=== PATIENT | female | born 1955 | race Caucasian/White ===

== ENCOUNTER 2019-03-04 17:16 | Inpatient (IN) | payer OTHER ==
[~2019-03-04] VITALS: Ht 157.5 cm; Wt 54.9 kg
[2019-03-04 17:16] VITALS: BP 121/54
--- NOTE | 2019-03-04 17:16 | NUR ---
Patient BIBA ALS, transferred to bed 10. RN evaluating patient at bedside.
[2019-03-04] MEDS ORDERED: NACL 0.9% 500 ML IV SCH (17:18)
--- NOTE | 2019-03-04 17:28 | NUR ---
diet tech at bedside.
[2019-03-04] MEDS ORDERED: CITA10TA11 PO (17:36)
[2019-03-04] MEDS ORDERED: DONE5TAB6 PO (17:36)
[2019-03-04] MEDS ORDERED: ASPI-1718 PO (17:36)
[2019-03-04] MEDS ORDERED: ATOR10TA PO (17:36)
[2019-03-04] MEDS ORDERED: AMLO2.5T PO (17:36)
--- NOTE | 2019-03-04 17:44 | NUR ---
NAIL ARABIC REMOVED FROM LEFT 1ST DIGIT AND SPO2 PLACED.
[2019-03-04 17:49] LABS: HEMATOCRIT 42.1 % (36-48); HEMOGLOBIN 13.7 g/dL (12.0-16.0); MEAN CORPUSCULAR HEMOGLOBIN 31 pg (27-31); MEAN CORPUSCULAR HGB CONC 33 g/dL (33-37); MEAN CORPUSCULAR VOLUME 95.3 fL (80-94); PLATELET COUNT (AUTO) 150 K/uL (140-450); RED BLOOD CELL COUNT(AUTO) 4.42 MIL/uL (4.20-5.40); RED CELL DISTRIBUTION WIDTH 13.2 % (11.6-13.7); WHITE BLOOD COUNT (AUTO) 15.6 K/uL (4.8-10.8)
[2019-03-04] MEDS ORDERED: OSELTAMIVIR PHOSPHATE 75 MG CAP PO ONE (18:00)
[2019-03-04] MEDS ORDERED: ALBUTEROL 0.083% 2.5 MG/3 ML NEBU INH ONE (18:00)
[2019-03-04] MEDS ORDERED: LEVOFLOXACIN 500 MG/D5W PREMIX 100 ML IV ONE (18:00)
[2019-03-04] MEDS ORDERED: NACL 0.9% 500 ML IV ONE (18:00)
[2019-03-04] MEDS ORDERED: methylPREDNISolone SS 125 MG/2 ML VIAL IVP ONE (18:00)
[2019-03-04] MEDS ORDERED: IPRATROPIUM 0.02% 0.5 MG/2.5 ML NEBU INH ONE (18:00)
[2019-03-04 18:01] LABS: CARBON DIOXIDE 31.2 mmol/L (21-32); CREATININE 1.4 mg/dL (0.6-1.3); POTASSIUM 4.2 mmol/L (3.5-5.1)
--- NOTE | 2019-03-04 18:01 | NUR ---
PT REMAINS MILDLY TREMULOUS WITH A WEAK WET COUGH---AUDIBLE RALE/RHONCHI 1-2 WORDED SPEECH WITH MODERATE ACCESSORY MUSCLE USE NOTED, SUPRACLAVICULAR, INTERCOSTAL, AND ABDOMINAL NOTED. MD AWARE--OKAY WITH 4-5 L NC OXYGEN AT THIS TIME--PT REMAINS ORIENTED TO NAME TIME PLACE AND EVEN. NO STEROIDS AT THIS TIME PER MD. RT CALLED FOR HHN 2NS IV PLACED. CONTINUOUS MONITORING AT THIS TIME
[2019-03-04 18:07] LABS: ALBUMIN 3.9 g/dL (3.4-5.0); TOTAL BILIRUBIN 0.9 mg/dL (0.0-1.0)
[2019-03-04 18:15] VITALS: BP 88/43
[2019-03-04 18:24] LABS: LYMPHOCYTES % (MANUAL) 5 % (20-46)
--- NOTE | 2019-03-04 18:25 | NUR ---
Pt's oxygen saturation 88% on 2L nasal canula. Dr. Alvarez made aware. Oxygen increased to 6L per minute per Dr. Alvarez. Pt oxygen saturaion increased to 94%.
--- NOTE | 2019-03-04 18:59 | NUR ---
STRAIGHT CATH AND RECTAL TEMP OBTAINED WITH HELP FROM PT AND MINNA PUENTES AND ROSETTA EMT
[2019-03-04 19:15] LABS: BILIRUBIN,URINE NEGATIVE (NEGATIVE); BLOOD, URINE NEGATIVE (NEGATIVE); COLOR,URINE YELLOW (YELLOW); LEUKOCYTE ESTERASE ,URINE 1+ (NEGATIVE); NITRITE, URINE POSITIVE (NEGATIVE); UGLUCOSE NEGATIVE (NEGATIVE)
--- NOTE | 2019-03-04 19:19 | NUR ---
TRANSFER OF CARE DONE BY MINNA PUENTES, PATIENT HAS EVEN AND LABORED BREATHING. RR 24, SPO2 91 ON NC 4L. BP 90/49, DOCTOR RHONDA MADE AWARE
--- NOTE | 2019-03-04 19:19 | NUR ---
Note farooq in EDM - 03/04/19 at [address] [facility] TRANSFER OF CARE DONE BY MINNA PUENTES, PATIENT HAS EVEN AND LABORED BREATHING. RR 24, SPO2 91 ON NC 4L. BP 90/49, DOCTOR RHONDA MADE AWARE.
--- NOTE | 2019-03-04 19:23 | NUR ---
RESPIRATORY THERAPIST AT BEDSIDE TO PERFORM BIPAP
[2019-03-04 19:24] LABS: APPEARANCE,URINE HAZY (CLEAR)
[2019-03-04] MEDS ORDERED: DOCUSATE SODIUM 100 MG GELCAP PO PRN (19:30)
[2019-03-04] MEDS ORDERED: ACETAMINOPHEN 325 MG TAB PO PRN (19:30)
[2019-03-04] MEDS ORDERED: ONDANSETRON 4 MG/2 ML VIAL IM/IVP PRN (19:30)
[2019-03-04] MEDS ORDERED: MORPHINE SULFATE 2 MG/ML SYR IVP PRN (19:30)
[2019-03-04] MEDS ORDERED: HYDROcodone/APAP 5/325 MG 1 TAB TAB PO PRN (19:30)
--- NOTE | 2019-03-04 19:30 | NUR ---
63 YEAR OLD FEMALE BIBA FOR SHORTNESS OF BREATHE. PER REPORT FROM PREVIOUS RN, EMS STATED THAT PT HAD SOB, COUGH, AND CONGESTION. PATIENT BREATHING LABORED AND EVEN, SPO2 88% ON 4L NC, LUNG SOUNDS DIMINISHED BILATERALLY, RR 30. PATIENT IS AOX1 TO NAME, UNABLE TO VERBALIZE WORDS. SKIN COOL AND DRY. PATIENT IS HOOKED UP TO BEDSIDE MONITOR. BED IN LOWEST POSITION, LOCKED, BED RAILS UPX2.
--- NOTE | 2019-03-04 19:32 | NUR ---
GAVE REPORT TO DELORIS ARMSTRONG
[2019-03-04] MEDS ORDERED: NACL 0.9% 1,500 ML IV ONE (19:35)
[2019-03-04 19:39] LABS: RBC,URINE NONE SEEN /HPF (0-5); WBC,URINE 20-60 /HPF (0-5)
[2019-03-04 20:05] LABS: BARBITURATE, URINE NEG. ng/ml (NEG <=200); BENZODIAZEPINE, URINE NEG. ng/mL (NEG <=200); COCAINE, URINE NEG. ng/mL (NEG <=300); OPIATE, URINE NEG. ng/mL (NEG <=2000); PHENCYCLIDINE SCREEN,URINE NEG. ng/mL (NEG <=25)
--- NOTE | 2019-03-04 20:11 | NUR ---
Dr. Thomas examining patient.
[2019-03-04 20:15] LABS: CANNABINOID, URINE NEG. ng/mL (NEG <=50)
[2019-03-04 20:16] LABS: MAGNESIUM 1.9 mg/dL (1.8-2.4); THYROID STIMULATING HORMONE 0.24 uIU/mL (0.34-3.74)
--- NOTE | 2019-03-04 20:23 | NUR ---
DAUGHTER KIRBY CALLED OVER PHONE AND GIVEN UPDATE
--- NOTE | 2019-03-04 20:30 | NUR ---
Patient O2 fluctuating between 100% and 85%, patient breathing labored and even. Patient on Bipap at 50%. Patient alert and awake. Will continue to monitor.
[2019-03-04 21:30] VITALS: BP 102/43
--- NOTE | 2019-03-04 21:33 | NUR ---
1815 PLACED PATIENT ON BIPAP. SETTINGS IPAP12 EPAP6 RR 14 FIO2 50% AT THIS TIME. PATIENTS SATS ARE 90%. WILL TITRATE. HHNTX GIVEN.
[2019-03-04] MEDS: NACL 0.9% 1,000 ML IV SCH (21:35)
--- NOTE | 2019-03-04 21:35 | NUR ---
patient is still fluctuating in O2 saturation, breathing continues to be labored and even. Mask for bipap still placed properly on face at 50% FiO2, O2 saturation 100% at this time. will continue to monitor.
--- NOTE | 2019-03-04 21:50 | NUR ---
BARBARA,RT DECREASED FIO2 TO 40% PRIOR TO TRANSFER TO THE FLOOR.
--- NOTE | 2019-03-04 22:00 | NUR ---
Patient will be admitted to care of DR PAZ. Admited to ICU. Will go to room 8. Belongings list completed. Report to JONATHAN PUENTES. Transfer of care at this time. VS stable at time of transfer.
[2019-03-04 22:12] VITALS: BP 115/55
--- NOTE | 2019-03-04 22:25 | NUR ---
2150 PATIENT TRANSFERED TO ICU BED 8 ON BIPAP. WITH NO INCIDENT
[2019-03-04] MEDS ORDERED: PIPERACILLIN/TAZOBACTAM 2.25 GM VIAL IV ONE (22:30)
[2019-03-04] MEDS: PIPERACILLIN/TAZOBACTAM 2.25 GM in DEXTROSE 5% 50 ML IV SCH (22:37)
--- NOTE | 2019-03-04 22:48 | NUR ---
2240 CHANGED PATIENTS BIPAP MASK TO MEDIUM SIZE
--- NOTE | 2019-03-04 23:00 | NUR ---
RECEIVED PT FROM ER BY FRANCOIS. RECEIVED REPORT FROM TOYIN PUENTES. PT AWAKE AND CONFUSED. MUMBLED SPEECH. PT SITTING UP IN BED. PT ON BIPAP FIO2 40 RATE 14 IPAP 12 EPAP 6. PT HAS LABORED SHALLOW BREATHING. SINUS RHYTHM ON MONITOR. IV SITE RIGHT FOREARM 20 GAUGE, LEFT ANTECUBITAL 20 GAUGE. IV SITE INTACT AND PATENT. NS RUNNING AT 120 ML/HR. ABDOMEN SOFT, BOWEL SOUNDS ACTIVE. SKIN IS WARM AND DRY. URINE IS YELLOW AND CLEAR, INCONTINENT. GENERALIZED WEAKNESS. NPO EXCEPT MEDS. BED LOCKED IN LOWEST POSITION. WILL CONTINUE TO MONITOR.
[2019-03-04] MEDS ORDERED: LORazepam 2 MG/ML VIAL IVP PRN (23:25)
[2019-03-04] MEDS ORDERED: LORazepam 2 MG/ML VIAL ONE (23:27)
--- NOTE | 2019-03-04 23:45 | NUR ---
CENTRAL LINE INSERTION PERFORMED BY DR. EVERARDO SANTIAGO. 1ML OF ATIVAN AND HEPARIN FLUSH 3ML GIVEN DURING PROCEDURE PER DR WHITESIDE.
[2019-03-05] VITALS (17 sets, daily range): BP systolic 97–150; BP diastolic 48–76
--- NOTE | 2019-03-05 01:00 | NUR ---
PT AWAKE, CONFUSED. SINUS RHYTHM ON MONITOR. NO SOB NOTED. PT ON BIPAP. FLACC 0. BED LOCKED IN LOWEST POSITION. WILL CONTINUE TO MONITOR.
--- NOTE | 2019-03-05 03:42 | NUR ---
LOWERED FIO2 TO 35% PT COMFORTABLE ON BIPAP
--- NOTE | 2019-03-05 03:45 | NUR ---
PT AWAKE AND CONFUSED. MUMBLED SPEECH. NO SOB NOTED. NAYLA CARE PROVIDED. LINENS CHANGED. FLACC 0. BED LOCKED IN LOWEST POSITION. WILL CONTINUE TO MONITOR.
[2019-03-05] MEDS: PIPERACILLIN/TAZOBACTAM 2.25 GM in DEXTROSE 5% 50 ML IV SCH ×3 (05:25→21:16)
--- NOTE | 2019-03-05 05:32 | NUR ---
PT HAS EYES CLOSED, NO SOB NOTED. VITAL SIGNS STABLE. FLACC 0. ORDERED MEDICATIONS GIVEN. WILL CONTINUE TO MONITOR.
[2019-03-05 06:11] LABS: HEMATOCRIT 34.8 % (36-48); HEMOGLOBIN 11.5 g/dL (12.0-16.0); LYMPHOCYTES # (AUTO) 0.6 K/uL (2.5-16.5); LYMPHOCYTES % (AUTO) 3.6 % (20.5-51.1); MEAN CORPUSCULAR HEMOGLOBIN 31 pg (27-31); MEAN CORPUSCULAR HGB CONC 33 g/dL (33-37); MEAN CORPUSCULAR VOLUME 95.3 fL (80-94); MONOCYTES # (AUTO) 0.4 K/uL (0.8-1.0); MONOCYTES % (AUTO) 2.7 % (1.7-9.3); NEUTROPHILS # (AUTO) 15.2 K/uL (1.8-7.7); NEUTROPHILS % (AUTO) 93.7 % (42.2-75.2); PLATELET COUNT (AUTO) 116 K/uL (140-450); RED BLOOD CELL COUNT(AUTO) 3.66 MIL/uL (4.20-5.40); RED CELL DISTRIBUTION WIDTH 13.2 % (11.6-13.7); WHITE BLOOD COUNT (AUTO) 16.3 K/uL (4.8-10.8)
[2019-03-05 06:19] LABS: MAGNESIUM 1.6 mg/dL (1.8-2.4)
[2019-03-05 06:27] LABS: ANION GAP 12.3 (8-16); CARBON DIOXIDE 26.9 mmol/L (21-32); CREATININE 1.2 mg/dL (0.6-1.3); POTASSIUM 3.2 mmol/L (3.5-5.1)
[2019-03-05 06:46] LABS: CHOL/HDL RATIO 1.4 (1-4.5)
--- NOTE | 2019-03-05 07:11 | NUR ---
rec'd pt on kelly v60 settings 03/01 rr 12 fio2 35% alarms on and audible and ambu bag is at side of bipap and bipap is plugged into red outlet, pt is wearing med face mask and skin is intact,and pt is awake and alert will continue to monitor Addendum: 03/05/19 at 0827 by Paige Logan RT BIPAP SETTING FOR RR IS 14
--- NOTE | 2019-03-05 08:00 | NUR ---
Received patient on bed.Pt on BIPAP.Pt tolerating well.Pt is incontinent.Right ij triple lumen intact and patent.No signs of infection with ns at 120 ml/h.Nsr on the monitor.
[2019-03-05 08:31] LABS: T4 (THYROXINE) 10.4 ug/dL (4.5-12.0)
[2019-03-05] MEDS: LACTOBACILLUS RHAMNOSUS GG 1 EACH CAP PO SCH (09:00)
--- NOTE | 2019-03-05 09:17 | NUR ---
DISCHARGE PLANNING: PER DR NAVA, PATIENT IS NOT STABLE FOR TRANSFER. CONTACTED [facility] AT [phone], ABLE TO SPEAK TO PRASANNA CORRIGAN. SHE STATED THERE IS NO CM ASSIGNED YET AT THIS TIME, PROBABLY IN 30 MINS. INFORMED HER THAT PATIENT IS NOT STABLE FOR DC FOR TODAY. SHE STATED TO GO AHEAD AND FAX CLINICALS TO [phone]. Addendum: 03/05/19 at 1028 by Ana Maria Fitzpatrick CM ALL CLINICALS AND IN PATIENT HOSPITAL STAY - NON CONTRACTED FORM FAXED TO THE PROVIDED FAX NUMBER. Addendum: 03/05/19 at 1043 by Ana Maria Fitzpatrick CM CONTACTED [facility], ABLE TO SPEAK TO GIUSEPPE CORRIGAN. HE TRANSFERRED ME TO [facility]ALE SENIOR LOAN PROCESSOR ASSIGNED TO THIS PATIENT. INFORMED [facility]ALE THAT PATIENT IS UNSTABLE FOR TRANSFER AT THIS TIME. SHE STATED TO FAX OVER CLINICALS. I INFORMED HER THAT I ALREADY DID AND I ALSO INCLUDED CONSULTATION REPORT. SHE STATED SHE WILL HAVE THEIR PHYSICIAN REVIEW IT. Addendum: 03/06/19 at 0843 by Ana Maria Fitzpatrick CM RECEIVED AN ORDER PATIENT IS STABLE FOR TRANSFER. CONTACTED [facility] AT [phone], ABLE TO SPEAK TO KIESHA CORRIGAN. SHE STATED CM DOES NOT COME IN UNTIL 0900. LEFT A MESSAGE REGARDING TRANSFER ORDER. SHE STATED SHE WILL RELAY THE MESSAGE TO THE ASSIGNED CM FOR TODAY. PROVIDED HER OF MY CONTACT INFORMATION. CM TO FOLLOW UP. Addendum: 03/06/19 at 0851 by Ana Maria Fitzpatrick CM CLINICALS FAXED TO [facility]. Addendum: 03/06/19 at 1438 by Ana Maria Fitzpatrick CM 1025: RECEIVED A CALL FROM CALE TELLO OF [facility], MADE HER AWARE THAT PATIENT IS STABLE FOR TRANSFER. SHE ASKED FOR CLINICALS. CLINICALS AND POST STABILIZATION FORM FAXED. Addendum: 03/06/19 at 1446 by Ana Maria Fitzpatrick CM CONTACTED [facility], ABLE TO SPEAK TO CHANELL CORRIGAN. SHE STATED [facility] IS OUT FOR LUNCH. SHE ALSO STATED PER CALE'S LAST DOCUMENTATIONS NO BEDS YET AT [facility] AND [facility]. AND TRIED [place] BUT PATIENT'S DAUGHTER SAID IT WAS TOO FAR. PROVIDED CHANELL OF MY CONTACT INFO TO CALL ME BACK FOR ROOM UPDATE. Addendum: 03/07/19 at 0854 by Ana Maria Fitzpatrick CM CONTACTED [facility] AT [phone], ABLE TO SPEAK TO KAYLA CORRIGAN. SHE STATED THERE IS NO CM AVAILABLE AT THIS TIME, THEY NORMALLY COME IN AROUND 0930. SHE ALSO STATED THAT THEY AUTHORIZED THE STAY DUE TO NO BED AVAILABLE AT THIS TIME. CM TO FOLLOW UP. CLINICAL AND POST STABILIZATION FORM SENT. Addendum: 03/07/19 at 1029 by Ana Maria Fitzpatrick RECEIVED A CALL FROM KENDRA TELLO AT [facility], SHE STATED THEY HAVE AN AVAILABLE BED AT [facility] AND ASK ME TO CONTACT FAMILY IF [facility] IS OK WITH THEM. CONTACTED PATIENT'S DAUGHTER ANGÉLICA BENNETT AT [phone], AGREEABLE WITH [facility]. KENDRA OF [facility] MADE AWARE, PROVIDED HER OF UNIT'S PHONE NUMBER. SHE ALSO STATED THAT THEIR DOC WILL DO DOC TO DOC WITH DR. NAVA, PROVIDED HER OF THE CALL PHONE NUMBER. DR. NAVA, PRIMARY RN AND CHARGE NURSE MADE AWARE.
--- NOTE | 2019-03-05 09:39 | NUR ---
MEDICATION NOT GIVEN PT IS ON BIPAP.
--- NOTE | 2019-03-05 09:55 | NUR ---
DR VIKY Patel-SCRAP METAL PROCESSING WORKER UPDATED ABOUT PTS CONDITION AND TALKED TO THE DAUGHTER.PER MD NPO.TRY TO WEAN BIPAP IF TOLERATED.LET RESIDENT ORDER SWALLOW EVAL.RESIDENT MADE AWARE.ALSO RESIDENT NOTIFIED ABOUT MAG LEVEL,K LEVEL,PHOSPORUS LEVEL.
--- NOTE | 2019-03-05 09:56 | NUR ---
PATIENT HAS BEEN SCREENED AND CATEGORIZED HIGH NUTRITION RISK. PATIENT WILL BE SEEN WITHIN 1-2 DAYS OF ADMISSION. 03/05/19-03/06/[address]
[2019-03-05] MEDS ORDERED: MAG SULF 2000 MG/WATER PREMIX 50 ML IV SCH (10:30)
--- NOTE | 2019-03-05 10:55 | NUR ---
as per rn destinee, wants pt to be weaned off bipap to see how pt does, if pt gets sob ir distress placed pt back on bipap. pt was placed on 5l oxymizer.
[2019-03-05] MEDS ORDERED: POTASSIUM CHLORIDE 40 MEQ, LIDOCAINE MPF 1% 25 MG in NACL 0.9% 250 ML IV SCH (11:00)
[2019-03-05] MEDS ORDERED: AZITHROMYCIN 500 MG in DEXTROSE 5% 250 ML IV SCH (11:00)
[2019-03-05] MEDS: NACL 0.9% 1,000 ML IV SCH ×3 (11:03→21:05)
--- NOTE | 2019-03-05 12:27 | NUR ---
*S.T. Bedside swallow eval completed* See report for details. Pt presents w/ moderate oral phase dysphagia c/b difficulty managing solids and mastication/oral prep of solids. Pt volitionally takes small bites and chews for prolonged periods, delaying initiation of pharyngeal swallow response. No overt s/s aspiration, however. Pt is unlikely to be able to swallow pills whole due to confusion and poor oral coordination. Recommend: 1) Advance to mechanical soft ground diet, thin liquids okay. Straws ok. 2) P.O. meds crushed and mixed w/ puree due to pt's confusion. 3) Nsg to assist w/ tray set up to promote self-feeding: opening containers and orienting pt to items on tray. Pt presents with limited rehab potential. No further tx is indicated at this time. DC to nsg care. Endorsed to DELORIS Rosario. Time [id number]
--- NOTE | 2019-03-05 14:02 | NUR ---
03/05/19 RD INITIAL ASSESSMENT COMPLETED PLEASE REFER TO NUTRITION ASSESSMENT UNDER CARE ACTIVITY FOR ESTIMATED NUTRITIONAL NEEDS. 1. CONSIDER ADVANCING DIET TO MECHANICAL SOFT 2 GM NA WHEN MEDICALLY STABLE 2. PROVIDE FEEDING ASSISTANCE WITH MEALS IF APPROPRIATE 3. RD TO FOLLOW-UP 2-3 DAYS, HIGH RISK BALWINDER WARREN, RD
[2019-03-05] MEDS ORDERED: SODIUM PHOSPHATE 15 MMOLE in NACL 0.9% 250 ML IV SCH (16:00)
--- NOTE | 2019-03-05 18:00 | NUR ---
Resident made aware pt is reaching at dressing of right IJ central line.Rn at the bedside and doing all alternatives before putting restraints.
--- NOTE | 2019-03-05 18:30 | NUR ---
Dr slater made aware pt had 2 loose stool and need to call the daughter for ultrasound result.
--- NOTE | 2019-03-05 19:00 | NUR ---
all alternatives still effective when pt is reaching at right ij central line.Restraints not applied.
--- NOTE | 2019-03-05 19:20 | NUR ---
CHANGE OF SHIFT REPORT GIVEN BY DAY NURSE. STATES RIGHT IJ TRIPLE LUMEN. NS IVF AT 120ML/HR. LUNGS MILD WHEEZING ON INSPIRATORY. RT AT BEDSIDE. RESPIRATIONS SYMMETRICAL BILATERALLY. BOWEL SOUNDS HEARD IN ALL 4 QUAD. OXIMIZER 4L. L AC 20G SALINE LOCK, R FA 20G SALINE LOCK. THIN LIQUIDS AND MECHANICAL SOFT DIET NOTED. PATIENT IN DIAPER AT THIS TIME. DRY PADDING NOTED AT THIS TIME. ORDER FOR RESTRAINTS IF NEEDED. SR ON MONITOR. PERRL BILATERALLY. PATIENT CONFUSED. DAUGHTER STATES FROM DEMENTIA AND BEING IN A ROUTINE HELPS THAT. PATIENT PICKING AT THE BLANKETS. CALM VOICE. SPEAKS TO STAFF. ABLE TO OBEY MOST COMMANDS. RESPONDS TO NAME. VSS. BED IN LOWEST POSITION. WILL CONTINUE TO MONITOR. PATIENT HAS BED ALARM BY SIDE. SKIN INTACT.
--- NOTE | 2019-03-05 19:45 | NUR ---
DAUGHTER PRESENT NOW AT BEDSIDE. VSS
--- NOTE | 2019-03-05 20:00 | NUR ---
AT BEDSIDE. JOSSELIN TO SPEAK WITH DAUGHTER. WILL FOLLOW UP IF NEW ORDERS. DOCOTOR CALLED BACK AT 2030 DUE TO DAUGHTER HAVING THE INFORMATION MD NEEDED. MD CAME BACK TO BEDSIDE. RENETTAS
--- NOTE | 2019-03-05 20:28 | NUR ---
CHARGE NURSE AND NURSE PLACED MITTENS ON TO PROTECT TUBING. PATIENT CONTINUES TO BITE AND PULL OFF MITTENS. DAUGHTER PRESENT AND STATES" SHE IS CONFUSED AND WILL NOT UNDERSTAND, SHE PROBABLY NEEDS THE WRIST RESTRAINTS."
--- NOTE | 2019-03-05 20:45 | NUR ---
SOFT WRIST RESTRAINTS PLACED ON BY CHARGE NURSE AND NURSE D/T PATIENT ATTEMPTING TO REMOVE LINES. DEESCALATION ATTEMPTED AND DID NOT WORK. ORDER ALREADY FOR RESTRAINTS FROM MD. DAUGHTER AWARE AND AT BEDSIDE. NO INJURY NOTED.VSS
--- NOTE | 2019-03-05 21:15 | NUR ---
MEDICATIONS GIVEN ORDERED. WILL CONTINUE TO MONITOR. NO S/S OF SOB OR DISTRESS NOTED. WILL CONTINUE TO MONITOR.VSS
[2019-03-06] VITALS (9 sets, daily range): BP systolic 92–140; BP diastolic 49–84
--- NOTE | 2019-03-06 01:47 | NUR ---
ASKED PATIENT IF SHES OK OR NEEDS ANYTHING. "I'M FINE"
--- NOTE | 2019-03-06 03:32 | NUR ---
MORNING CARE PERFORMED BY CHARGE NURSE AND HEALTHCARE MANAGEMENT. THEY STATED BM AND URINE NOTED. PATIENT CLEANED WITHOUT INJURY. TOLERATED WELL. VSS. BED CHANGED.
[2019-03-06] MEDS ORDERED: MELATONIN 3 MG TAB PO SCH (04:00)
[2019-03-06] MEDS ORDERED: MELATONIN 3 MG TAB PO PRN (04:05)
[2019-03-06] MEDS: NACL 0.9% 1,000 ML IV SCH ×3 (04:11→22:04)
--- NOTE | 2019-03-06 04:20 | NUR ---
MELATONIN CRUSHED AND GIVEN VIA APPLESAUCE. PATIENT TOLERATED WELL. SWALLOWED WELL. NO COUGHING. NO DIFFICULTY. NO SOB. NO S/S OF DISTRESS NOTED. WILL CONTINUE TO MONITOR. VSS. BED IN LOWEST POSITION. CALL LIGHT WITHIN REACH.
[2019-03-06] MEDS: PIPERACILLIN/TAZOBACTAM 2.25 GM in DEXTROSE 5% 50 ML IV SCH ×3 (04:29→21:16)
--- NOTE | 2019-03-06 04:30 | NUR ---
lab draw by nurse via rij. flushed after with ns 10cc patent intact dry and clean
--- NOTE | 2019-03-06 06:12 | NUR ---
DR. NAVA AT BEDSIDE. UPDATED ON STATUS. VSS.
[2019-03-06 06:43] LABS: BASOPHILS % (AUTO) 0.1 % (0.0-2.0); HEMATOCRIT 36.6 % (36-48); HEMOGLOBIN 12.2 g/dL (12.0-16.0); LYMPHOCYTES # (AUTO) 1.2 K/uL (2.5-16.5); MEAN CORPUSCULAR HEMOGLOBIN 32 pg (27-31); MEAN CORPUSCULAR HGB CONC 33 g/dL (33-37); MEAN CORPUSCULAR VOLUME 95.1 fL (80-94); MONOCYTES # (AUTO) 1.1 K/uL (0.8-1.0); MONOCYTES % (AUTO) 5.5 % (1.7-9.3); NEUTROPHILS # (AUTO) 18.3 K/uL (1.8-7.7); NEUTROPHILS % (AUTO) 88.4 % (42.2-75.2); PLATELET COUNT (AUTO) 135 K/uL (140-450); RED BLOOD CELL COUNT(AUTO) 3.85 MIL/uL (4.20-5.40); RED CELL DISTRIBUTION WIDTH 13.5 % (11.6-13.7); WHITE BLOOD COUNT (AUTO) 20.7 K/uL (4.8-10.8)
[2019-03-06 07:04] LABS: ANION GAP 10.8 (8-16); POTASSIUM 3.8 mmol/L (3.5-5.1)
[2019-03-06] MEDS ORDERED: VANCOMYCIN PER PHARMACY MC PRN (07:05)
[2019-03-06 07:13] LABS: MAGNESIUM 2.1 mg/dL (1.8-2.4); PHOSPHORUS 2.1 mg/dL (2.5-4.9)
--- NOTE | 2019-03-06 07:25 | NUR ---
PATIENT VSS. NO SOB OR DISTRESS NOTED. WAVED GOODBYE TO NURSE AND INTRODUCED TO NEW NURSE. ANGEL. ENDORSED CARE TO DAY NURSE.
--- NOTE | 2019-03-06 07:26 | NUR ---
BEDSIDE REPORT RECIEVED FROM INFANT NANNY NURSE, PT RESTING WITH EYES CLOSED, AROUSED BY VOICE, OX1 TO HERSELF ONLY, SPEAKS CLEARLY BUT CONFUSED, MOVES ALL EXT X4, RESP EVEN UNLABORED ON 4L OXYMIZER, 95%, RR 20, BP 140/63, HR 70 SR ON MONITOR, SKIN WARM DRY COLOR WNL, CAP REFIL ,<3, RIJ TRIPLE LUMEN NS AT 120ML/HR, INFUSING WELL, SITE WNL, ALL SAFETY MEASURES IN PLACE, PT IN BILAT SOFT WRIST RESTRAINTS, TRIES TO REMOVE CENTRAL LINE, AND OXYGEN TUBING, CONSTANT RE-ORIENTATION AND OTHER INTERVENTIONS NOT EFFECTIVE, PLAN OF CARE REVIEWED, NO IMMEDIATE4 NEEDS AT THIS TIME, WILL CONTINUE TO MONITOR.
--- NOTE | 2019-03-06 07:45 | NUR ---
DR VAZQUEZ AND MEDICAL TEAM AT BEDSIDE, PT TO BE DOWN GRADED TO TELE AND POSSIBLE TRANSFER TO [place]/CONTRACTED FACILITY.
[2019-03-06] MEDS: LACTOBACILLUS RHAMNOSUS GG 1 EACH CAP PO SCH (08:08)
--- NOTE | 2019-03-06 08:45 | NUR ---
LARGE URINE, AND SMALL BM INCONTINENT, DIAPER, PADS GOWN CHANGED, PERICARE DONE, PT POSITIONED FOR COMFORT.
--- NOTE | 2019-03-06 09:03 | NUR ---
DAUGHTER AT BEDSIDE, POC DISCUSSED, DAUGHTER WILL CALL WITH UPDATED MEDICATION LIST.
[2019-03-06] MEDS: VANCOMYCIN 750 MG in DEXTROSE 5% 250 ML IV SCH (09:58)
--- NOTE | 2019-03-06 10:48 | NUR ---
[facility] MEASUREMENT AND SENSING TECHNICIAN PHYLLIS CALLED TO RET CLINICAL UPDATE. CURRENT CONDITION, LABS REPORTED.
--- NOTE | 2019-03-06 11:35 | NUR ---
PT CONTINUES TO TRY TO REMOVE OXYMIZER, PT SITTING UP WATCHING TV, TALKING TO HERSELF, RESP EVEN UNLABORED. SKIN WARM DRY COLOR WNL, CONTINUE TO MONITOR.
[2019-03-06] MEDS ORDERED: Vancomycin Per Pharmacy MC (12:29)
[2019-03-06] MEDS ORDERED: PIPE50SO5 IV (12:29)
--- NOTE | 2019-03-06 12:46 | NUR ---
PT SITTING UP EATING LUNCH. FEEDING HERSELF. JUN WELL.
[2019-03-06] MEDS ORDERED: SODIUM PHOSPHATE 15 MMOLE in NACL 0.9% 250 ML IV SCH (14:00)
--- NOTE | 2019-03-06 14:30 | NUR ---
PT RESTING QUIETLY WATCHING TV, RESP EVEN UNLABORED. SKIN WARM, DRY COLOR WNL, DENIES ANY PAIN, WILL CONTIUE TO MONITOR.
--- NOTE | 2019-03-06 17:05 | NUR ---
PT RESTING QUIETLY, APPEARS IN NO ACUTE DISTRESS, NO BED AVAILABLE YET AT [facility] PER CM, VITALS STABLE ON MONITOR, WILL CONTINUE TO MONITOR
--- NOTE | 2019-03-06 18:20 | NUR ---
O2SAT 85-88, O2 INCREASED TO 6L OXYMIZER, RT SASHA CALLED TO NOTIFY. O2 SAT INCREASED TO 93% NOW.
[2019-03-06] MEDS ORDERED: SODIUM PHOSPHATE 15 MMOLE in NACL 0.9% 250 ML IV ONE (19:15)
--- NOTE | 2019-03-06 19:20 | NUR ---
RECEIVED BEDSIDE REPORT FROM MORNING NURSE. PATIENT AAO X2, KNOWN HER NAME AND DAUGHTER'S NAME, ABLE TO MAKE NEEDS KNOWN AND FOLLOW COMMANDS BUT SEVERE DEMENTIA NOTED. DIMINISHED BILATERAL LUNGS SOUND WITH O2 6L/M VIA OXIMIZER, NO ACUTE RESPIRATORY DISTRESS NOTED. SR ON THE MONITOR. DENIES CP AT THIS TIME. CENTRAL LINE TO RIGHT IJ TRIPLE LUMENS RUNNING WITH NS 120ML/HR. PERIPHERAL LINES TO RIGHT FORE ARM 20G, LEFT AC 18G NOTED. ON BILATERAL SOFT WRISTS RESTRAINT, CHECKED CIRCULATIONS. CALL LIGHT WITHIN REACH. ACTIVE BOWEL SOUND FROM ALL 4 QUADS. HOB ELEVATED, BED IN LOW POSITION. WILL CONTINUE TO MONITOR.
[2019-03-06] MEDS ORDERED: SODIUM PHOS / POTASSIUM PHOS 1 PKT PDR PO SCH (22:00)
--- NOTE | 2019-03-06 22:00 | NUR ---
ADMINISTERED SCHEDULED MEDICATIONS ORDERED. NO ACUTE DISTRESS NOTED. DENIES PAIN. TOLERATED WELL WITH OXIMIZER. WILL CONTINUE TO MONITOR.
[2019-03-07] VITALS: BP 141/92
--- NOTE | 2019-03-07 01:00 | NUR ---
NO ACUTE RESPIRATORY DISTRESS NOTED. TOLERATED WELL WITH OXIMIZER 6L/M. PATIENT IN CONTINENT, LARGE AMOUNT OF URINE BUT DOES NOT LET THE NURSE TO CHANGE, CONFUSION NOTED.
--- NOTE | 2019-03-07 02:22 | NUR ---
BROUGHT IN FROM ICU AND PLACED IN ROOM 108-A. RECEIVED ALERT,CONFUSED. AFEBRILE, NOT IN ACUTE DITRESS. NO PAIN OR DISCOMFORT NOTED. ON O2 AT 6 LPM VIA OXIMIZER. TRIPLE LUMEN CVP ON THE RIGHT INTERNAL JUGULAR VEIN INTACT. SALINE LOCK TO THE RIGHT FOREARM #20 AND LEFT AC #18 INTACT. WITH BILATERAL SOFT WRIST RESTRAINTS IN PLACE. VS STABLE, WILL CONTINUE TO MONITOR.
--- NOTE | 2019-03-07 02:35 | NUR ---
IV FLUID NS RESTARTED AT 120 ML/HR.
--- NOTE | 2019-03-07 02:40 | NUR ---
PATIENT TRANSFERRED TO FLOOR ROOM 108A.
[2019-03-07 04:00] VITALS: BP 140/80
--- NOTE | 2019-03-07 04:00 | NUR ---
AWAKE, NOT IN ANY KIND OF DISTRESS. NO PAIN OR DISCOMFORT NOTED. VS REMAIN STABLE.
[2019-03-07] MEDS: PIPERACILLIN/TAZOBACTAM 2.25 GM in DEXTROSE 5% 50 ML IV SCH ×3 (04:57→19:49)
[2019-03-07] MEDS: NACL 0.9% 1,000 ML IV SCH (04:57)
[2019-03-07 05:59] LABS: BASOPHILS % (AUTO) 0.2 % (0.0-2.0); EOSINOPHILS % (AUTO) 0.2 % (0.0-4.0); HEMATOCRIT 41.2 % (36-48); HEMOGLOBIN 13.5 g/dL (12.0-16.0); LYMPHOCYTES # (AUTO) 1.7 K/uL (2.5-16.5); LYMPHOCYTES % (AUTO) 9.6 % (20.5-51.1); MEAN CORPUSCULAR HEMOGLOBIN 31 pg (27-31); MEAN CORPUSCULAR HGB CONC 33 g/dL (33-37); MEAN CORPUSCULAR VOLUME 94.8 fL (80-94); MONOCYTES % (AUTO) 6.1 % (1.7-9.3); NEUTROPHILS # (AUTO) 14.4 K/uL (1.8-7.7); NEUTROPHILS % (AUTO) 83.9 % (42.2-75.2); PLATELET COUNT (AUTO) 156 K/uL (140-450); RED BLOOD CELL COUNT(AUTO) 4.35 MIL/uL (4.20-5.40); RED CELL DISTRIBUTION WIDTH 13.2 % (11.6-13.7); WHITE BLOOD COUNT (AUTO) 17.2 K/uL (4.8-10.8)
[2019-03-07 06:41] LABS: ANION GAP 9.1 (8-16); CARBON DIOXIDE 29.3 mmol/L (21-32); CREATININE 0.8 mg/dL (0.6-1.3); POTASSIUM 3.4 mmol/L (3.5-5.1)
[2019-03-07 07:00] LABS: MAGNESIUM 1.8 mg/dL (1.8-2.4); PHOSPHORUS 2.1 mg/dL (2.5-4.9)
--- NOTE | 2019-03-07 07:22 | NUR ---
ENDORSED CARE TO JONO HAQUE.
--- NOTE | 2019-03-07 07:23 | NUR ---
RECEIVED REPORT FROM THE MAINTENANCE PERSON NURSE AT BEDSIDE FOR CONTINUITY OF CARE. PT IS SLEEPING. PT HAS RESTRAINTS FOR PT'S OWN SAFETY. PER MAINTENANCE PERSON RN, PT WAS CONFUSED AND TRIED PULLING IJ AND IV'S OUT. PT IS WEARING AN OXIMIZER AT 6 L. PT IS TO BE TRANSFERRED TO [facility]. SKIN IS INTACT. WILL CONTINUE TO MONITOR PT.
[2019-03-07 08:00] VITALS: BP 125/75
[2019-03-07] MEDS: SODIUM PHOS / POTASSIUM PHOS 1 PKT PDR PO SCH ×2 (09:13→12:20)
[2019-03-07] MEDS: LACTOBACILLUS RHAMNOSUS GG 1 EACH CAP PO SCH (09:13)
[2019-03-07] MEDS: VANCOMYCIN 750 MG in DEXTROSE 5% 250 ML IV SCH (09:13)
--- NOTE | 2019-03-07 09:15 | NUR ---
ADMINISTERED MORNING MEDS. PT TOLERATED WELL. REPLENISHED THE PHOS LEVEL WITH NEUTRAPHOS. WILL NEED TO GET ORDER FOR KDUR. PT K LEVEL LOW AT 3.4. PT SWALLOWS PILLS WELL. WILL NOTIFY RESIDENT AND GET ORDER. PER DR NAVA, PT WILL BE TRANSFERRED TO [facility] ONCE THEY HAVE A BED. WILL AWAIT ORDERS AND D/C.
--- NOTE | 2019-03-07 11:24 | NUR ---
03/07/19 RD FOLLOW UP COMPLETED PLEASE REFER TO NUTRITION ASSESSMENT UNDER CARE ACTIVITY FOR ESTIMATED NUTRITIONAL NEEDS. 1. CONTINUE MECHANICAL SOFT TOLERATED 2. PROVIDE FEEDING ASSISTANCE WITH MEALS IF APPROPRIATE 3. HEALTH SHAKE WILL BE ADDED TO MEALS 4. RD TO FOLLOW-UP 3-5 DAYS, MODERATE RISK [address]WINDER WARREN RD
[2019-03-07] MEDS ORDERED: POTASSIUM PHOSPHATE 15 MM in NACL 0.9% 250 ML IV SCH (11:30)
[2019-03-07 12:00] VITALS: BP 116/78
--- NOTE | 2019-03-07 13:00 | NUR ---
PT FINISHED ZOSYN. NOW THE POTASSIUM PHOSPHATE IS RUNNING. PT IS CHANGED TO TRANSPORT GOWN AND [facility]. NOT SURE WHAT TIME SHE WILL BE TRANSFERRED. WILL AWAIT TRANSFER TIME.
--- NOTE | 2019-03-07 15:11 | NUR ---
[facility] [employer] CALLED RE PT'S TRANSFER. PT IS TO [facility] ROOM [address]. DR. Yazmin GUTIERREZ IS ACCEPTING [facility] IS THE TRANSPORT COMPANY TO BE HERE AT 2000. TO GIVE REPORT CALL : [phone].
[2019-03-07 16:00] VITALS: BP 147/80
--- NOTE | 2019-03-07 17:13 | NUR ---
NOTIFIED MARIANA, DAUGHTER REGARDING MOM'S TRANSFER. ANSWERED QUESTIONS REGARDING CENTRAL LINE. IT WILL STAY DURING TRANSPORT AND WHEN SHE GETS D/C'D FROM [facility], MOST LIKELY IT WILL BE REMOVED THEN. DAUGHTER VERBALIZED UNDERSTANDING.
--- NOTE | 2019-03-07 19:27 | NUR ---
ENDORSED PT TO THE CASING CLEANER NURSE. PT IS IN STABLE CONDITION. PT IS ALL READY FOR TRANSFER. AWAITING [facility] TRANSPORTATION FOR PHOTOGRAMMETRIC STEREO COMPILER. D/C PAPERS SIGNED BY MYSELF AND CASING CLEANER NURSE BC PT IS UNABLE TO SIGN. PT HAS IJ AND R FA 20G.
--- NOTE | 2019-03-07 19:30 | NUR ---
RECEIVED REPORT FROM JONO PUENTES DAYSHIFT NURSE AT BEDSIDE FOR CONTINUITY OF CARE, PT IN STABLE CONDITION.
[2019-03-07 20:00] VITALS: BP 147/80
--- NOTE | 2019-03-07 20:00 | NUR ---
PT IN BED READY FOR DISCHARGE. PT HAS R IJ INTACT AND RUNNING NS ORDERED. PT ALSO HAS OXYMIZER AT 5 LITERS 02. PT DENIES PAIN, SHE IS AOX1 ALL FALLS PRECAUTIONS IN PLACE.
--- NOTE | 2019-03-07 21:00 | NUR ---
PT GIVEN ORDERED ZOSYN IVPB VIA R IJ. DISCHARGE TEACHING DONE AT BEDSIDE PT HAS BELONGINGS AT BEDSIDE READY FOR DISCHARGE.
--- NOTE | 2019-03-07 21:30 | NUR ---
[facility] HERE FOR TRANSPORT. PT TELE BOX REMOVED. IVS ON RIGHT F/A AND R IJ INTACT. QUICK REPORT GIVEN TO [facility] FOR TRANSPORT. REPORT WAS ALREADY GIVEN TO RECEIVING RN FROM PREVIOUS SHIFT. PT LEFT VIA GURNEY WITH 2 [facility] EMT'S IN STABLE CONDITION WITH ALL BELONGINGS IN HAND.
== END 2019-03-07 21:15 | disposition short-term general hospital (02) | DRG 871 ==
LOC: MED 17:16 → MIC 19:35 → MTU 03-07 02:30
PROVIDERS: ADMIT General Practice; ATTEND General Practice
PROC: 5A09357 Assistance with Respiratory Ventilation, Less than 24 Consecutive Hours, Continuous Positive Airway Pressure (ICD-10-PCS; principal; 2019-03-04)
PROC: 02HV33Z Insertion of Infusion Device into Superior Vena Cava, Percutaneous Approach (ICD-10-PCS; 2019-03-04)
PROC: B548ZZA Ultrasonography of Superior Vena Cava, Guidance (ICD-10-PCS; 2019-03-04)
DX: A41.9 Sepsis, unspecified organism (principal); J96.01 Acute respiratory failure with hypoxia; R65.21 Severe sepsis with septic shock; N17.0 Acute kidney failure with tubular necrosis; J69.0 Pneumonitis due to inhalation of food and vomit; N39.0 Urinary tract infection, site not specified; G93.40 Encephalopathy, unspecified; J90 Pleural effusion, not elsewhere classified; F03.90 Unspecified dementia, unspecified severity, without behavioral disturbance, psychotic disturbance, mood disturbance, and anxiety; I10 Essential (primary) hypertension; F32.9 Major depressive disorder, single episode, unspecified; E87.6 Hypokalemia; E83.42 Hypomagnesemia; E83.39 Other disorders of phosphorus metabolism; B96.89 Other specified bacterial agents as the cause of diseases classified elsewhere; J44.9 Chronic obstructive pulmonary disease, unspecified
CPT/HCPCS: 36415; 36600; 71045; 76604; 80048; 80053; 80305; 81001; 82803; 83036; 83605; 83735; 83880; 84100; 84436; 84443; 84484; 85025; 85610; 85730; 87040; 87081; 87086; 87186; 87804; 92610; 93005; 94640; 94660; 96361; 96365; 96366; 96375; 99291; C1758; J0456; J1642; J1956; J2001; J2060; J2543; J2930; J3370; J3475; J3480; J7030; J7060; J7613; J7644; Q0092